=== PATIENT | male | born 1995 | race Caucasian/White ===

== ENCOUNTER 2016-11-17 16:55 | Inpatient (IN) | payer BC ==
[2016-11-17 17:24] LABS: MCH 28.2 pg (25.7-33.7); MCHC 34.3 g/dl (32.0-35.9); MEAN CELL VOLUME 82.4 fl (80-96); MEAN PLT VOLUME 7.8 fl (7.5-11.1); PLATELET COUNT 266 K/MM3 (134-434); RDW 13.1 % (11.9-15.9); WHITE BLOOD COUNT 9.2 K/mm3 (4.0-10.0)
[2016-11-17 17:27] LABS: URINE APPEARANCE CLEAR; URINE BILIRUBIN NEGATIVE (NEGATIVE); URINE BLOOD NEGATIVE (NEGATIVE); URINE COLOR YELLOW; URINE GLUCOSE (UA) NEGATIVE (NEGATIVE); URINE KETONE TRACE (NEGATIVE); URINE LEUK ESTERASE NEGATIVE (NEGATIVE); URINE NITRITE NEGATIVE (NEGATIVE); URINE UROBILINOGEN 2.0 E.U/dl E.U./dl (0.2-1.0)
[2016-11-17 17:31] LABS: URINE PROTEIN 1+ (NEGATIVE)
[2016-11-17 17:32] LABS: URINE HYALINE CAST 1 /lpf; URINE MUCUS FEW; URINE RBC <1 /hpf (0-3)
[2016-11-17 17:51] LABS: ALBUMIN 4.5 g/dl (3.4-5.0); ANION GAP 7 (8-16); BILIRUBIN,TOTAL 0.9 mg/dL (0.2-1.0); CALCIUM 9.5 mg/dL (8.5-10.1); CO2 31 mmol/L (21-32); CREATININE 0.9 mg/dL (0.7-1.3); GLUCOSE,RANDOM 96 mg/dL (74-106); SGOT/AST 251 U/L (15-37); SGPT/ALT 97 U/L (12-78); TOT PROT 7.4 g/dl (6.4-8.2)
[2016-11-17 18:14] LABS: ALK PHOS 75 U/L (45-117); TROPONIN I < 0.02 ng/ml (0.00-0.05)
[2016-11-17] MEDS ORDERED: SODIUM CHLORIDE 1,000 ML IV ONE (18:53)
[2016-11-17] MEDS ORDERED: KETOROLAC TROMETHAMINE 30 MG/1 ML VIAL IVPUSH ONE (19:07)
--- NOTE | 2016-11-17 19:13 | PDOC ---
History of Present Illness - General History Source: Patient Exam Limitations: No Limitations - History of Present Illness Initial Comments: 11/17/16 19:08 20y No pmhx presents with complaint of abnormal labs. pt states he is typically sedentary, 3 days ago, he has been having increasing aching/pain in his arms he went to urgent care, had lab work that showed a K of 5.7 so was sent to the ED for evluation. the pt denies any hematuria or discoloration in his urine pt denies any pain anywhere else beside his triceps area. <Neel Zaidi - Last Filed: 11/18/16 09:20> <Mireya Horton - Last Filed: 11/18/16 23:39> - General Chief Complaint: Revisit, Lab Variance Stated Complaint: PCP SENT/ARM PAIN/ABNORMAL LABS Time Seen by Provider: 11/17/16 16:57 Past History - Past Medical History Other medical history: DENIES. - Surgical History Appendectomy: Yes - Immunization History Immunization Up to Date: No - Psycho/Social/Smoking Cessation Hx Anxiety: No Suicidal Ideation: No Smoking History: Current every day smoker Have you smoked in the past 12 months: Yes Number of Cigarettes Smoked Daily: 10 Information on smoking cessation initiated: No Hx Alcohol Use: Yes Substance Use Type: Alcohol <Neel Zaidi - Last Filed: 11/18/16 09:20> <Mireya Horton - Last Filed: 11/18/16 23:39> - Past Medical History Allergies/Adverse Reactions: Allergies Allergy/AdvReac Type Severity Reaction Status Date / Time No Known Allergies Allergy Verified 11/17/16 16:57 Home Medications: Ambulatory Orders No Home Medications 0 dose .ROUTE UTDICT 01/04/14 Review of Systems - Review of Systems Able to Perform ROS?: Yes Comments:: 11/17/16 19:56 Constitutional - no reported Fever, Chills, weakness, HEENT: no reported vision changes, sore throat Respiratory: no reported cough, sob, hemoptysis Cardiac: no reported chest pain, palpitations, light headedness, leg swelling Abd/GI: no reported abd pain, nausea, vomiting, blood per rectum, melena, diarrhea : no reported dysuria, frequency, discharge Musculskelatal - +arm pain no reported back pain, joint swelling skin - no reported bruising, erythema, rash neurological: no reported headache, numbness, focal weakness, tingling, ataxia, weakness hematologic: no reported anemia, easy bruising, easy bleeding <Neel Zaidi - Last Filed: 11/18/16 09:20> *Physical Exam - Vital Signs Last Vital Signs Temp Pulse Resp BP Pulse Ox 97.8 F 108 H 19 146/78 97 11/17/16 16:57 11/17/16 16:57 11/17/16 16:57 11/17/16 16:57 11/17/16 16:57 - Physical Exam Comments: 11/17/16 19:56 GENERAL: The patient is awake, alert, and fully oriented, Nontoxic - in no acute distress. HEAD: Normocephalic, atraumatic. EYES: extraocular movements intact, sclera anicteric, conjunctiva clear. ENT: Normal voice, Moist mucous membranes. NECK: Normal range of motion, supple LUNGS: Breath sounds equal, clear to auscultation bilaterally. No wheezes, no rhonchi, no rales. HEART: Regular rate and rhythm, normal S1 and S2 without murmur, rub or gallop. ABDOMEN: Soft, nontender, normoactive bowel sounds. No guarding, no rebound. . No CVA tenderness EXTREMITIES: mild tenderness to triceps bilaterally Normal range of motion, no edema. No clubbing or cyanosis. No cords, erythema, or tenderness. NEUROLOGICAL: No facial assymetry, Normal speech, PSYCH: Normal mood, normal affect. SKIN: Warm, Dry, normal turgor, <Neel Zaidi - Last Filed: 11/18/16 09:20> - Vital Signs Last Vital Signs Temp Pulse Resp BP Pulse Ox 97.8 F 108 H 19 146/78 97 11/17/16 16:57 11/17/16 16:57 11/17/16 16:57 11/17/16 16:57 11/17/16 16:57 <Mireya Horton - Last Filed: 11/18/16 23:39> ED Treatment Course - LABORATORY CBC & Chemistry Diagram: 11/17/16 17:12 11/17/16 17:12 - ADDITIONAL ORDERS Additional order review: Laboratory Results 11/17/16 11/17/16 17:12 17:12 Sodium 143 Potassium 4.5 Chloride 105 Carbon Dioxide 31 Anion Gap 7 L BUN 16 Creatinine 0.9 Creat Clearance w eGFR > 60 Random Glucose 96 Calcium 9.5 Total Bilirubin 0.9 AST 251 H ALT 97 H Alkaline Phosphatase 75 Creatine Kinase 18882 H Troponin I < 0.02 Total Protein 7.4 Albumin 4.5 Urine Color Yellow Urine Appearance Clear Urine pH 6.0 Ur Specific [place] 1.032 Urine Protein 1+ H Urine Glucose (UA) Negative Urine Ketones Trace H Urine Blood Negative Urine Nitrite Negative Urine Bilirubin Negative Urine Urobilinogen 2.0 e.u/dl Ur Leukocyte Esterase Negative Urine RBC <1 Urine WBC None Ur Epithelial Cells Rare Hyaline Casts 1 Urine Mucus Few 11/17/16 17:12 RBC 5.43 MCV 82.4 MCHC 34.3 RDW 13.1 MPV 7.8 <Dejuan,Neel - Last Filed: 11/18/16 09:20> - LABORATORY CBC & Chemistry Diagram: 11/17/16 17:12 11/18/16 10:30 - ADDITIONAL ORDERS Additional order review: Laboratory Results 11/17/16 11/17/16 11/17/16 21:35 21:35 17:12 Sodium Potassium Chloride Carbon Dioxide Anion Gap BUN Creatinine Creat Clearance w eGFR Random Glucose Calcium Total Bilirubin AST ALT Alkaline Phosphatase Creatine Kinase 86486 H Creatine Kinase Index CK-MB (CK-2) CK-MB (CK-2) Rel Index Cancelled Cancelled Troponin I Total Protein Albumin Urine Color Urine Appearance Urine pH Ur Specific [place] Urine Protein Urine Glucose (UA) Urine Ketones Urine Blood Urine Nitrite Urine Bilirubin Urine Urobilinogen Ur Leukocyte Esterase Urine RBC Urine WBC Ur Epithelial Cells Hyaline Casts Urine Mucus 11/17/16 11/17/16 17:12 17:12 Sodium 143 Potassium 4.5 Chloride 105 Carbon Dioxide 31 Anion Gap 7 L BUN 16 Creatinine 0.9 Creat Clearance w eGFR > 60 Random Glucose 96 Calcium 9.5 Total Bilirubin 0.9 AST 251 H ALT 97 H Alkaline Phosphatase 75 Creatine Kinase 52592 H Creatine Kinase Index 0.0 CK-MB (CK-2) 3.956 H CK-MB (CK-2) Rel Index Troponin I < 0.02 Total Protein 7.4 Albumin 4.5 Urine Color Yellow Urine Appearance Clear Urine pH 6.0 Ur Specific [place] 1.032 Urine Protein 1+ H Urine Glucose (UA) Negative Urine Ketones Trace H Urine Blood Negative Urine Nitrite Negative Urine Bilirubin Negative Urine Urobilinogen 2.0 e.u/dl Ur Leukocyte Esterase Negative Urine RBC <1 Urine WBC None Ur Epithelial Cells Rare Hyaline Casts 1 Urine Mucus Few 11/17/16 17:12 RBC 5.43 MCV 82.4 MCHC 34.3 RDW 13.1 MPV 7.8 - Medications Given in the ED: ED Medications Discontinued Medications Generic Name Dose Route Start Last Admin Trade Name Bg PRN Reason Stop Dose Admin Sodium Chloride 1,000 mls @ 1,000 mls/hr 11/17/16 18:53 11/17/16 19:30 Normal Saline - IV 11/17/16 19:52 1,000 mls/hr .Q1H ONE Administration Ketorolac Tromethamine 30 mg 11/17/16 19:07 11/17/16 19:30 Toradol Injection - IVPUSH 11/17/16 19:08 30 mg ONCE ONE Administration <Mireya Horton - Last Filed: 11/18/16 23:39> Medical Decision Making - Medical Decision Making 11/17/16 19:56 The patient's blood work was noted for normal potassium However his CK was notably elevated, likely secondary to muscle breakdown from doing pushups The patient's creatinine was normal the patient's urine revealshematuria or signs of blood in the urine. We'll give the patient 2 L of normal saline and then we'll reassess his CK,if still significantly elevated will admit for further hydration. ekg at urgent care did not show peaked T waves the case was signed ou tto dr. horton to fu with results and reassess the pt. <Neel Zaidi - Last Filed: 11/18/16 09:20> - Medical Decision Making 11/18/16 23:38 After 2L IVF, patient's CPK went up. Also he has LFT elevation. Both will be evaluated inhouse. Pt will require admission for rhabdomyolysis <Mireya Horton - Last Filed: 11/18/16 23:39> *DC/Admit/Observation/Transfer <Neel Zaidi - Last Filed: 11/18/16 09:20> - Discharge Dispostion Admit: Yes <Mireya Horton - Last Filed: 11/18/16 23:39> Diagnosis at time of Disposition: Rhabdomyolysis, Elevated liver enzymes - Discharge Dispostion Disposition: AGAINST MEDICAL ADVICE - Referrals
[2016-11-17] MEDS ORDERED: KETOROLAC TROMETHAMINE 30 MG/1 ML VIAL ONE (19:29)
[2016-11-18 02:58] VITALS: BMI 22.5
[2016-11-18 11:06] LABS: ALBUMIN 4.2 g/dl (3.4-5.0); ANION GAP 7 (8-16); BILIRUBIN,TOTAL 0.6 mg/dL (0.2-1.0); CALCIUM 9.3 mg/dL (8.5-10.1); CO2 28 mmol/L (21-32); CREATININE 0.8 mg/dL (0.7-1.3); GLUCOSE,RANDOM 86 mg/dL (74-106); SGOT/AST 328 U/L (15-37); SGPT/ALT 118 U/L (12-78); TOT PROT 6.9 g/dl (6.4-8.2)
[2016-11-18 11:30] LABS: ALK PHOS 71 U/L (45-117); TROPONIN I < 0.02 ng/ml (0.00-0.05)
--- NOTE | 2016-11-18 11:54 | HP ---
Admitting History and Physical - Admission History of Present Illness: 20 Y/O MALE WITHOUT SIGNIFICANT PMH C/O RT AM PAIN AFTER WORKING OUT. 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, Migraine, Peripheral Neuropathy Cardiovascular: No: CAD, CHF, PA Pulmonary: No: COPD, O2 Dependent Gastrointestinal: No: Constipation, Crohn's Disease, Diverticulosis, Pancreatitis, Peptic Ulcer Disease - Smoking History Smoking history: Current every day smoker Have you smoked in the past 12 months: Yes Aproximately how many cigarettes per day: 10 - Alcohol/Substance Use Hx Alcohol Use: Yes Home Medications - Allergies Allergies/Adverse Reactions: Allergies Allergy/AdvReac Type Severity Reaction Status Date / Time No Known Allergies Allergy Verified 11/17/16 16:57 - Home Medications Home Medications: Ambulatory Orders No Home Medications 0 dose .ROUTE UTDICT 01/04/14 Review of Systems - Review of Systems HENT: reports: No Symptoms Neck: reports: No Symptoms Cardiovascular: reports: No Symptoms Respiratory: reports: No Symptoms Gastrointestinal: reports: No Symptoms Genitourinary: reports: No Symptoms Musculoskeletal: reports: Extremity Pain Physical Examination Vital Signs: Vital Signs Temperature 98.5 F 11/18/16 06:56 Pulse Rate 73 11/18/16 06:56 Respiratory Rate 18 11/18/16 06:56 Blood Pressure 127/64 11/18/16 06:56 O2 Sat by Pulse Oximetry (%) 99 11/18/16 05:00 Cardiovascular: Yes: Regular Rate and Rhythm Respiratory: Yes: Regular, CTA Bilaterally Gastrointestinal: Yes: Normal Bowel Sounds, Soft. No: Tenderness Edema: No Neurological: Yes: Alert, Oriented Labs: CBC, BMP 11/18/16 10:30 Assessment/Plan 1. ABNORMAL LFT--RISING--UNKNOWN ETIOLOGY US GI CONSULT HEP SCREEN 2.ELEVATED CK IVF 3. ARM PAIN OBSERVE 4. TOBACCO USE 5.ETOH
[2016-11-18] MEDS ORDERED: SODIUM CHLORIDE 1,000 ML IV SCH ×2 (12:00→13:00)
--- NOTE | 2016-11-18 13:09 | CON.GI ---
Consult Consult Specialty:: GASTROENTEROLOGY Reason for Consultation:: ELEVATED TRANSAMINASES - History of Present Illness Chief Complaint: MUSCLE ACHES History of Present Illness: 20 YEAR OLD MALE WITH NO SIGNIFICANT MEDICAL HISTORY ADMITTED WITH ELEVATED CPK , AST AND ALT WITH MUSCLE SORENESS FOR 3 DAYS AFTER PERFORMING 87 PUSHUPS. HE HAS NOT BEEN EXERCISING LATELY. LABS IN ED REVEALED ELEVATED CPK, AND TRANSAMINASES. HE DENIES EXCESSIVE ALCOHOL USE. THE LAST TIME HE DRANK ALCOHOL WAS LAST SUNDAY. CONSULT CALLED I GUESS BECAUSE HE HAD ELEVATED TRANSAMINASES. HE HAS NOT BEEN HYDRATED SINCE THE 2 LITERS GIVEN IN THE ED. HE FEELS VERY WELL EXCEPT FOR ARM SORENESS. HE JUST CAME BACK FROM ULTRASOUND. NO FAMILY HISTORY OF LIVER DISEASE. HE BELIEVES HIS OTHER LABS FROM THE PAST WERE NORMAL. 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: Alzheimer's, CVA, Dementia, Migraine, Multiple Sclerosis, Peripheral Neuropathy, Parkinson's, Seizure, Syncope, TIA, Vertigo, Other Cardio/Vascular: No: AFIB, Aneurysm, Aortic Insufficiency, Aortic Stenosis, CAD , CHF, Deep Vein Thrombosis, HTN, Hyperlipdemia, IN, Mitral Insufficiency, Mitral Stenosis, Murmur, Pulmonary Hypertension, Other Pulmonary: No: Asthma, Bronchitis, Cancer, COPD, O2 Dependent, Pneumonia, Previously Intubated, Pulmonary Embolus, Pulmonary Fibrosis, Sleep Apnea, Other Gastrointestinal: No: Ascites, Cancer, Constipation, Crohn's Disease, Diverticulitis, Diverticulosis, Esophageal Varices, Gastritis, GERD, GI Bleed, Hemorrhoids, Hiatal Hernia, Inflamatory Bowel Disease, Irritable Bowel Disease, Pancreatitis, Peptic Ulcer Disease, Ulcerative Colitis, Other Hepatobiliary: No: Cirrhosis, Cholelithiasis, Cholecystitis, Choledocholithiasis , Hepatitis A, Hepatitis B, Hepatitis C, Other Renal/: No: Renal Failure, Renal Inusuff, BPH, Cancer, Hematuria, Hemodialysis , Neurogenic Bladder, Renal Calculi, UTI, Other Heme/Onc: No: Anemia, B12 Deficiency, Bleeding Disorder, Cancer, Current Chemotherapy, Current Radiation Therapy, Hemochromatosis, Hypercoaguable State, Myeloproliferative Synd, Sickle Cell Disease, Sickle Cell Trait, Thrombocytopenia, Other Infectious Disease: No: AIDS, C-Diff, Herpes Zoster, HIV, MRSA, STD's, Tuberculosis, VREF, Other Musculoskeletal: No: Bursitis, Chronic low back pain, Hemiparesis, Hemiplegia, Osteoarthritis, Paraplegia, Other Rheumatology: No: Fibromyalgia, Gout, Lupus, Rheumatoid Arthritis, Sarcoidosis, Vasculitis, Other ENT: No: Allergic Rhinitis, Sinusitis, Other Endocrine: No: Terence's Disease, [place]'s Disease, Diabetes Insipidus, Diabetes Mellitus, Hyperparathyroidism, Hyperthyroidism, Hypothyroidism, Osteopenia, SIADH, Other Dermatology: No: Basal Cell, Cellulitis, Eczema, Melanoma, Psoriasis, Squamous Cell, Other - Past Surgical History Past Surgical History: Yes: Appendectomy, Tonsillectomy - Alcohol/Substance Use Hx Alcohol Use: Yes (ON THE WEEKEND, NOT IN EXCESS) - Smoking History Smoking history: Current every day smoker Have you smoked in the past 12 months: Yes Aproximately how many cigarettes per day: 10 Home Medications - Allergies Allergies/Adverse Reactions: Allergies Allergy/AdvReac Type Severity Reaction Status Date / Time No Known Allergies Allergy Verified 11/17/16 16:57 - Home Medications Home Medications: Ambulatory Orders No Home Medications 0 dose .ROUTE UTDICT 01/04/14 Family Disease History - Family Disease History Family History: Unremarkable Review of Systems - Review of Systems Constitutional: reports: No Symptoms Eyes: reports: No Symptoms HENT: reports: No Symptoms Neck: reports: No Symptoms Cardiovascular: reports: No Symptoms Respiratory: reports: No Symptoms Gastrointestinal: reports: No Symptoms Genitourinary: reports: No Symptoms Breasts: reports: No Symptoms Reported Musculoskeletal: reports: Muscle Pain, Muscle Cramps Integumentary: reports: No Symptoms Neurological: reports: No Symptoms Endocrine: reports: No Symptoms Hematology/Lymphatic: reports: No Symptoms Physical Exam-GI Vital Signs: Vital Signs Temperature 98.5 F 11/18/16 06:56 Pulse Rate 73 11/18/16 06:56 Respiratory Rate 18 11/18/16 06:56 Blood Pressure 127/64 11/18/16 06:56 O2 Sat by Pulse Oximetry (%) 99 11/18/16 05:00 Constitutional: Yes: No Distress, Calm Eyes: Yes: Conjunctiva Clear HENT: Yes: Normocephalic Neck: Yes: Supple Cardiovascular: Yes: Regular Rate and Rhythm Respiratory: Yes: Regular Gastrointestinal Inspection: Yes: WNL ...Auscultate: Yes: Normoactive Bowel Sounds ...Palpate: Yes: Soft ...Rectal Exam: Yes: Deferred Musculoskeletal: Yes: Muscle Pain Extremities: Yes: WNL Neurological: Yes: WNL Labs: CBC, BMP 11/18/16 10:30 Imaging - Results Ultrasound: Image Reviewed (.6 GB POLYP) Problem List - Problems (1) Rhabdomyolysis Assessment/Plan: BASED ON HISTORY AND PHYSICAL EXAM THERE IS NO SUSPICION OF LIVER DISEASE. I BELIEVE THIS PATIENT NEEDS TO BE TREATED FOR RHABDOMYLOSIS. SONOGRAM FINDINGS NOT ETIOLOGY OF TRANSAMINASES Code(s): M62.82 - RHABDOMYOLYSIS
[2016-11-18 14:11] VITALS: BP 123/64; PULSE 79; TEMP 97.5
--- NOTE | 2016-11-18 21:03 | EKG ---
Test Reason : Blood Pressure : / mmHG Vent. Rate : 071 BPM Atrial Rate : 071 BPM P-R Int : 154 ms QRS Dur : 078 ms QT Int : 338 ms P-R-T Axes : 067 062 031 degrees QTc Int : 367 ms SINUS RHYTHM WITH MARKED SINUS ARRHYTHMIA OTHERWISE NORMAL ECG NO PREVIOUS ECGS AVAILABLE Confirmed by ANT PEREZ MD ([id number]) on 11/18/2016 9:03:23 PM Referred By: Confirmed By:ANT PEREZ MD
== END 2016-11-18 16:15 | disposition left against medical advice (07) | DRG 558 ==
LOC: JER 16:55 → JERBED 23:15 → OBSVTOIN 23:15 → UNDOADMOB 23:43 → JERBED 23:43 → UNDOADMOB 23:44 → JERBED 23:44 → J7W 11-18 03:18
PROVIDERS: ADMIT Family Medicine; ATTEND Family Medicine
DX: M62.82 Rhabdomyolysis (principal); F17.210 Nicotine dependence, cigarettes, uncomplicated
CPT/HCPCS: 36415; 76705-TC; 80053; 80074; 81003; 81015; 82550; 82553; 84484; 85027; 93005; 93010; 99284-25

== ENCOUNTER 2022-09-10 08:07 | Emergency (ER) | payer SELFPAY ==
[2022-09-10 08:29] VITALS: BP 114/69; PULSE 89; RESP 20; TEMP 99.6; BMI 21.7
[2022-09-10] MEDS ORDERED: IBUPROFEN 600 MG TABLET (FP) PO ONE ×2 (09:01→09:05)
== END 2022-09-10 09:35 | disposition home or self-care (01) ==
LOC: JERFT 08:07
DX: K03.81 Cracked tooth (principal); K08.89 Other specified disorders of teeth and supporting structures
CPT/HCPCS: 99283-25